=== PATIENT | female | born 1995 | race Caucasian/White ===

== ENCOUNTER 2020-09-22 22:15 | Emergency (ER) | payer OTHER ==
[~2020-09-22 22:15] MED LIST: MACROBID 100 M100 MG PO; PYRIDIUM200 MG PO
[2020-09-23 00:19] LABS: HEMOGLOBIN 14.6 gm/dl (12.3-15.3); RED BLOOD COUNT 4.44 M/UL (4.00-5.10); WHITE BLOOD COUNT 10.4 K/UL (4.5-11.0)
[2020-09-23 00:38] LABS: BUN/CREATININE RATIO 8 (0-10)
[2020-09-23] MEDS ORDERED: OMNICEF 300 MG300 MG PO (01:26)
[2020-09-23] MEDS ORDERED: ZOFRAN4 MG PO (01:26)
== END 2020-09-23 01:35 | disposition home or self-care (01) ==
LOC: ER1 22:15
PROVIDERS: Physician Assistant Medical
DX: N39.0 Urinary tract infection, site not specified (principal); R11.2 Nausea with vomiting, unspecified; F17.210 Nicotine dependence, cigarettes, uncomplicated
CPT/HCPCS: 80053; 81001; 83690; 84703; 85025; 96374; 99284; J2405